=== PATIENT | male | born 1970 | race Caucasian/White ===

== ENCOUNTER 2017-05-03 17:53 | Emergency (ER) | payer OTHER ==
[~2017-05-03] VITALS: Ht 185.4 cm; Wt 86.2 kg
[~2017-05-03 17:53] MED LIST: CELEXA20 MG PO
[2017-05-03] MEDS ORDERED: NORCO 5-325 TA1 EACH PO (19:32)
== END 2017-05-03 19:54 | disposition home or self-care (01) ==
LOC: ED 17:53
DX: S82.891A Other fracture of right lower leg, initial encounter for closed fracture (principal); W18.31XA Fall on same level due to stepping on an object, initial encounter; Z79.899 Other long term (current) drug therapy; Y93.89 Activity, other specified; Y92.89 Other specified places as the place of occurrence of the external cause; Y99.8 Other external cause status

== ENCOUNTER → 2018-01-31 | Outpatient (CLI) | payer OTHER ==
[~2018-01-31] MED LIST changes: +NORCO 5-325 TA1 EACH PO
[2018-01-31 15:10] LABS: HEMATOCRIT 42.7 % (42.0-52.0); HEMOGLOBIN 14.8 g/dl (14.0-18.0); MEAN CELL VOLUME 92.6 fl (80.0-94.0); MEAN CORPUSCULAR HGB 32.1 pg (27.0-31.0); MEAN CORPUSCULAR HGB CONC 34.7 g/dl (33.0-37.0); MEAN PLATELET VOLUME 8.8 fl (9.6-12.3); PLATELET COUNT AUTOMATED 252 10*3/uL (130-400); RED BLOOD COUNT 4.61 10*6/uL (4.50-5.90); RED CELL DISTRI WIDTH 13.2 % (0-14.5); WHITE BLOOD COUNT 5.3 10*3/uL (4.8-10.8)
[2018-01-31 15:33] LABS: BUN 14 mg/dl (7-24); CHLORIDE 106 mmol/L (98-107); CREATININE 1.29 mg/dL (0.70-1.30); POTASSIUM 3.8 mmol/L (3.5-5.1); SODIUM 140 mmol/L (136-145)
[2018-01-31 15:37] LABS: ATYPICAL LYMPHS 6 % (0-0); BASOPHILS 1 % (0-1); PLATELET SUFFICIENCY NORMAL (NORMAL); TOTAL CELLS COUNTED 100 #CELLS
[2018-01-31 15:38] LABS: ACT PARTIAL THROMBO TIME 23.2 SECONDS (20.8-31.5)
== END | disposition home or self-care (01) ==
LOC: LAB 14:46
PROVIDERS: Surgery
DX: K64.9 Unspecified hemorrhoids (principal)

== ENCOUNTER → 2018-02-09 | Day surgery (SDC) | payer OTHER ==
[~2018-02-09] VITALS: Ht 185.4 cm; Wt 81.6 kg
[2018-02-09] VITALS (7 sets, daily range): BP systolic 107–129; BP diastolic 60–76
--- NOTE | ~2018-02-09 | O ---
[place], [place] OPERATIVE NOTE NAME: JOELLE SANDOVAL UNIT #: [id number] ROOM: DOCTOR: ASHISH TORIBIO MD BIRTHDATE: [birth year] DOS: 02/09/2018 PREOPERATIVE DIAGNOSIS: Symptomatic internal hemorrhoids. POSTOPERATIVE DIAGNOSIS: Symptomatic internal hemorrhoids. PROCEDURE: Doppler-guided hemorrhoid arterial ligation, rectopexy times 1 (7 o'clock position). SURGEON: Ashish Toribio MD HOUSEKEEPING DEPARTMENT WORKER: ДМИТРИЙ. ANESTHESIA: General. INDICATIONS: This is a 47-year-old gentleman with symptomatic, grade 2 and grade 3 internal hemorrhoids, was here for the above-mentioned procedure. The procedure and its complications were explained to the patient in detail preoperatively. Complications that were discussed included but were not limited to bleeding, recurrence, prolonged postoperative pain, damage to lying vital structures. He agreed to proceed. DESCRIPTION OF PROCEDURE: After identifying the patient, the patient was brought to the operating suite and laid in the supine position. After induction of general anesthesia, the patient was placed in lithotomy position and the parts were then painted and draped in the usual sterile fashion. A digital rectal exam was performed, which was within normal limits. Prior to this, a time-out procedure was called. The Doppler probe was now introduced into the anal canal and rectum and ligations with the help of 2-0 Vicryl were performed at 1, 3, 5, 7, 9 and 11 o'clock positions respectively. Thereafter, a single rectopexy was performed at 7 o'clock position. Thereafter, a rectal exam was performed and there was no hematoma that could be palpated. Local anesthesia was infiltrated in the perianal fashion and the lidocaine jelly was placed. The patient was placed back in a supine position and then brought back to the recovery room after uneventful extubation. There were no complications. Dr. Ashish Toribio, the attending surgeon, was present throughout the operating case. [place], [place] OPERATIVE NOTE NAME: JOELLE SANDOVAL UNIT #: [id number] ROOM: DOCTOR: ASHISH TORIBIO MD BIRTHDATE: [birth year] Ashish Toribio MD CM:OPRECORD:OPERATIVE NOTE [id number] ASHISH TORIBIO MD 02/09/18 1045 interface
== END | disposition home or self-care (01) ==
LOC: SDC 02-06 14:00
DX: K64.8 Other hemorrhoids (principal); Z79.899 Other long term (current) drug therapy
CPT/HCPCS: 00902; 0249T

== ENCOUNTER → 2019-02-23 | Day surgery (SDC) | payer OTHER ==
[~2019-02-23] VITALS: Ht 185.4 cm; Wt 83.9 kg
[~2019-02-23] MED LIST changes: +AUGMENTIN 875875 MG PO; +PHENERGAN25 M3 PO; +ZOFRAN4 MG PO
--- NOTE | ~2019-02-23 | PROC NOTE ---
[place], [place] PROCEDURE NOTE NAME: JOELLE SANDOVAL UNIT #: [id number] ROOM: DOCTOR: ASHISH TORIBIO MD BIRTHDATE: [birth year] DOS: 02/23/2019 PREOPERATIVE DIAGNOSIS: Recurrent grade 3 internal hemorrhoids. POSTOPERATIVE DIAGNOSIS: Recurrent grade 3 internal hemorrhoids. PROCEDURES: Doppler guided hemorrhoidal artery ligation, rectoanal repair. SURGEON: Ashish Toribio MD RUG INSPECTOR: ДМИТРИЙ. ANESTHESIA: MAC with local. INDICATIONS: This is a 48-year-old gentleman who has recurrent grade 3 internal hemorrhoids, who is here for the above-mentioned procedure. The procedure and its complications were explained to the patient in detail preoperatively. Complications that were discussed included but were not limited to, bleeding, prolonged pain, recurrence and damage to underlying vital structures. He agreed to proceed. DESCRIPTION OF PROCEDURE: After identifying the patient, the patient was brought to the operating room and laid in the supine position. After a time-out procedure was called, IV sedation was administered by the anesthesia team and the patient was placed in a lithotomy position. The parts were then painted and draped in the usual sterile fashion. A digital rectal exam was performed, which was within normal limits except for the presence of grade 3 hemorrhoids. Doppler guided hemorrhoidal artery ligation was performed at 1, 3, 5, 7, 9 and 11 o'clock positions with the help of 2-0 Vicryl. Thereafter, rectoanal repair was performed at 9 o'clock position for the hemorrhoid mass that was prolapsing. After that was done, the probe was withdrawn and digital rectal exam was performed again and there was no hematoma that could be palpated. There was no bleeding. Local anesthesia was infiltrated in a perianal fashion and topical lidocaine was also applied for pain relief. The patient was placed in a supine position and given mesh underwear for comfort and to keep the dressing in place. The patient then was brought back to the recovery room in stable fashion. There were no complications. Dr. Ashish Toribio, the attending surgeon, was present throughout the operating case. [place], [place] PROCEDURE NOTE NAME: JOELLE SANDOVAL UNIT #: [id number] ROOM: DOCTOR: ASHISH TORIBIO MD BIRTHDATE: [birth year] Ashish Toribio MD CM:NATASHA:PROCEDURE NOTE [id number] ASHISH TORIBIO MD
[2019-02-23 07:00] VITALS: BP 117/68
[2019-02-23 08:18] VITALS: BP 126/58
[2019-02-23 08:35] VITALS: BP 97/48
[2019-02-23 08:47] VITALS: BP 96/46
[2019-02-23 09:02] VITALS: BP 103/58
[2019-02-23 09:20] VITALS: BP 102/53
== END | disposition home or self-care (01) ==
LOC: SDC 02-21 08:45
DX: K64.2 Third degree hemorrhoids (principal); Z72.89 Other problems related to lifestyle; Z79.899 Other long term (current) drug therapy; Z98.890 Other specified postprocedural states
CPT/HCPCS: 00902; 0249T

== ENCOUNTER 2019-02-25 07:10 | Emergency (ER) | payer OTHER ==
[~2019-02-25] VITALS: Ht 185.4 cm; Wt 83.9 kg
[~2019-02-25 07:10] MED LIST changes: -AUGMENTIN 875875 MG PO; -PHENERGAN25 M3 PO; -ZOFRAN4 MG PO
[2019-02-25 07:39] LABS: HEMATOCRIT 41.9 % (42.0-52.0); HEMOGLOBIN 14.8 g/dl (14.0-18.0); MEAN CELL VOLUME 94.6 fl (80.0-94.0); MEAN CORPUSCULAR HGB 33.4 pg (27.0-31.0); MEAN CORPUSCULAR HGB CONC 35.3 g/dl (33.0-37.0); MEAN PLATELET VOLUME 8.7 fl (9.6-12.3); PLATELET COUNT AUTOMATED 254 10*3/uL (130-400); RED BLOOD COUNT 4.43 10*6/uL (4.50-5.90); RED CELL DISTRI WIDTH 13.2 % (0-14.5); WHITE BLOOD COUNT 18.1 10*3/uL (4.8-10.8)
[2019-02-25 07:54] LABS: ALBUMIN 3.5 gm/dl (3.1-4.5); ALKALINE PHOSPHATASE 59 U/L (45-117); BUN 14 mg/dl (7-24); CHLORIDE 107 mmol/L (98-107); CREATININE 1.27 mg/dL (0.70-1.30); LIPASE 84 U/L (73-393); POTASSIUM 3.5 mmol/L (3.5-5.1); SGOT/AST 20 IU/L (3-35); SGPT/ALT 67 U/L (12-78); SODIUM 141 mmol/L (136-145)
[2019-02-25 07:59] LABS: TOTAL CELLS COUNTED 100 #CELLS
[2019-02-25 08:00] LABS: PLATELET SUFFICIENCY NORMAL (NORMAL)
[2019-02-26] MEDS ORDERED: ZOFRAN4 MG PO (14:06)
[2019-02-26] MEDS ORDERED: PHENERGAN25 M3 PO (14:06)
== END 2019-02-25 11:15 | disposition home or self-care (01) ==
LOC: ED 07:10
PROVIDERS: Emergency Medicine
DX: R10.11 Right upper quadrant pain (principal); R11.0 Nausea; R68.83 Chills (without fever); Z79.899 Other long term (current) drug therapy; Z98.890 Other specified postprocedural states

== ENCOUNTER 2019-02-26 12:40 | Emergency (ER) | payer OTHER ==
--- NOTE | ~2019-02-26 | EKG ---
[place], [place] ELECTROCARDIOGRAM REPORT NAME: JOELLE SANDOVAL UNIT #: [id number] ROOM: DOCTOR: KARISSA DRAFT REPORT BIRTHDATE: [birth year] [facility] Test Date: 2019-02-26 Test Time: 12:57:18 Pat Name: JOELLE SANDOVAL Department: Room: Gender: Exercise Specialist: Lesvia Rouse : 1970 Requested By: FRAN NUNEZ Order Number: [id number] Reading MD: Costa Brown Measurements Intervals [place] Rate: 64 P: 44 DC: 149 QRS: 39 QRSD: 97 T: 8 QT: 383 QTc: 395 Interpretive Statements Sinus rhythm No previous ECG available for comparison Electronically Signed On 02-28-2019 13:25:09 PDT by Costa Brown CM:EKGRPT:ELECTROCARDIOGRAM REPORT [id number] FRAN BHAKTA DRAFT REPORT FRAN NUNEZ DO
[2019-02-26 13:06] LABS: HEMATOCRIT 40.6 % (42.0-52.0); HEMOGLOBIN 14.2 g/dl (14.0-18.0); MEAN CELL VOLUME 94.9 fl (80.0-94.0); MEAN CORPUSCULAR HGB 33.2 pg (27.0-31.0); MEAN PLATELET VOLUME 8.6 fl (9.6-12.3); PLATELET COUNT AUTOMATED 213 10*3/uL (130-400); RED BLOOD COUNT 4.28 10*6/uL (4.50-5.90); WHITE BLOOD COUNT 21.2 10*3/uL (4.8-10.8)
[2019-02-26 13:17] LABS: ACT PARTIAL THROMBO TIME 27.9 SECONDS (20.0-32.1); INTERNATIONAL NORM RATIO 1.1 (2.0-3.5)
[2019-02-26 13:22] LABS: ALBUMIN 3.2 gm/dl (3.1-4.5); ALKALINE PHOSPHATASE 61 U/L (45-117); BUN 15 mg/dl (7-24); CHLORIDE 106 mmol/L (98-107); CREATININE 1.44 mg/dL (0.70-1.30); LIPASE 83 U/L (73-393); POTASSIUM 3.7 mmol/L (3.5-5.1); SGOT/AST 16 IU/L (3-35); SGPT/ALT 52 U/L (12-78); SODIUM 139 mmol/L (136-145)
[2019-02-26 13:23] LABS: TROPONIN I < 0.015 ng/ml (<0.045)
[2019-02-26 13:25] LABS: BASOPHILS 1 % (0-1); PLATELET SUFFICIENCY NORMAL (NORMAL); TOTAL CELLS COUNTED 100 #CELLS
[2019-02-26] MEDS ORDERED: ZOFRAN4 MG PO (14:06)
[2019-02-26] MEDS ORDERED: PHENERGAN25 M3 PO (14:06)
== END 2019-02-26 14:15 | disposition home or self-care (01) ==
LOC: ED 12:40
PROVIDERS: Emergency Medicine
DX: D72.829 Elevated white blood cell count, unspecified (principal); R11.2 Nausea with vomiting, unspecified; Z79.899 Other long term (current) drug therapy

== ENCOUNTER 2019-02-28 12:27 | Inpatient (IN) | payer OTHER ==
[~2019-02-28] VITALS: Ht 182.9 cm; Wt 81.6 kg
--- NOTE | ~2019-02-28 | CON ---
[place], [place] REPORT OF CONSULTATION NAME: JOELLE SANDOVAL UNIT #: [id number] ROOM: 519 DOCTOR: LEIDA RANJANSILVIA BIRTHDATE: [birth year] DOS: 03/01/2019 PULMONARY CONSULTATION NOTE REASON FOR CONSULTATION: Potential respiratory infection, fever of unknown origin. REQUESTED BY: Hospitalist service. HISTORY OF PRESENT ILLNESS: This is a 48-year-old man who underwent hemorrhoidal surgery on 02/23/2019. Started having fevers and chills postop day #2. The patient had fevers, chills and rigors with sweats soaking through his sheets. The patient went to the ED. He had a white count of 19, but CT abdomen and pelvis was done, was originally negative. The patient was sent home. The patient then came back to the ED a day later. Once again had an elevated white count of 21, but all other labs were within normal limits. The patient was sent home. Once again, the patient came back due to increased symptoms at night on further evaluation. PAST MEDICAL HISTORY: 1. External hemorrhoids. 2. Avulsion fracture of ankle. PAST SURGICAL HISTORY: 1. Hemorrhoidectomy x 2. 2. Inguinal hernia surgery. 3. Vasectomy. SOCIAL HISTORY: The patient with social alcohol use. No tobacco use and does not use illicit drugs. FAMILY HISTORY: The patient's mother is alive with atrial fibrillation. The patient's father is healthy, but no other medical problems are known. ALLERGIES: The patient does not have any allergies. HOME MEDICATIONS: Celexa. REVIEW OF SYSTEMS: GENERAL: The patient reports fevers, chills. Denies weight loss or weight gain. HEENT: The patient denies vision changes, hearing loss, nasal discharge or pain, ear discharge or pain. The patient denies throat pain, swelling or dysphagia. CARDIOVASCULAR: The patient denies chest pain, palpitations or lower extremity edema. RESPIRATORY: The patient denies shortness of breath, cough, hemoptysis, wheezing, dyspnea on exertion, paroxysmal nocturnal dyspnea, stridor or sputum production. ABDOMINAL: The patient reports loss of appetite, but denies abdominal pain, [place], [place] REPORT OF CONSULTATION NAME: JOELLE SANDOVAL UNIT #: [id number] ROOM: [facility] DOCTOR: LEIDA HINA TRAVIS BIRTHDATE: [birth year] nausea, vomiting, diarrhea, constipation, melena, hematochezia or hematemesis. GENITOURINARY: The patient denies dysuria, hematuria, increased frequency or urgency. NEUROLOGIC: The patient denies lightheadedness or confusion. PSYCHIATRIC: The patient denies depression, anxiety or substance abuse. ENDOCRINE: The patient denies polydipsia, heat or cold intolerance. SKIN: The patient denies any rashes, lesions or ulcers. PHYSICAL EXAMINATION: VITAL SIGNS: The patient has a temperature of 98.1. However, the patient did have a temperature of 100.5 overnight that was associated with sweats but not chills. The patient has a pulse of 58, respiratory rate of 18, blood pressure 135/74, patient is 98% on room air. HEENT: Normocephalic, atraumatic. Eyes nonicteric. NECK: Supple, nontender, without lesions. Trachea midline. HEART: Regular rate and rhythm. S1, S2 audible. LUNGS: Clear to auscultation bilaterally. ABDOMEN: Soft, positive bowel sounds, nontender. EXTREMITIES: No clubbing, cyanosis or edema. NEUROLOGIC: Grossly intact. Cranial nerves 2-12 are grossly intact. PSYCHIATRIC: Normal mood. SKIN: Warm and dry. No rashes. LABORATORY DATA: On admission from today are remarkable for a white count of 4.5. On 02/26/2019, his white count was 21.2. Hemoglobin 12.6, hematocrit 36.4, platelet count of 22.4. Sodium today is 143, 4 for his potassium, chloride 111, carbon dioxide 25, BUN 10, creatinine 1.3. GFR 58, glucose normal. Calcium 7.9, phosphorus 3.1, mag 2.2, T-bili 0.3, AST 26, ALT 49, alkaline phosphatase 55, total protein 5.9, albumin 2.7. Lipid panel within normal limits. The patient has had multiple blood cultures since the , all are negative to date. The patient also had repeat blood cultures on admission which are not back yet but presumed negative currently. ASSESSMENT: 1. Likely gram-negative bacteremia secondary to rectal surgery. 2. Fever of unknown origin. 3. Leukocytosis. PLAN: At this time, we will treat the patient if he has gram-negative bacteremia. Even if this is just a transient thing that happened after surgery. Gram-negative bacteria are lysed. They can release many things that ____ fever. Therefore, currently we will treat this with Zosyn 4.5 grams over extended infusion. We suspect this is the source of the fever and not anything respiratory related. However, we will continue to follow the patient. Any other changes will be based on the progression of illness. Thank you very much for allowing me to participate in this patient's care. [place], [place] REPORT OF CONSULTATION NAME: JOELLE SANDOVAL UNIT #: [id number] ROOM: [facility] DOCTOR: HINA VERMA DO BIRTHDATE: [birth year] Pierre Verma DO ZACHARY CARVAJAL MD CM:CONSTR:REPORT OF CONSULTATION 0906 03/02/19 1316 interface
--- NOTE | ~2019-02-28 | PR ---
[place], [place] PROGRESS NOTE NAME: JOELLE SANDOVAL UNIT #: [id number] ROOM: 519 DOCTOR: WEI GILL MD,ZACHARY BIRTHDATE: [birth year] DOS: 03/02/2019 PULMONARY PROGRESS NOTE SUBJECTIVE: The patient is independently seen and examined in [id number] encounter, history was confirmed. Labs reviewed. The assessment of the patient today was personally completed. Note done by the medical videographer was approved as well. He was planned to have endoscopy to be done by Dr. Toribio. The patient was still noted with some episode of diaphoresis at nighttime, but not noted with any high grade fever. Fever of the patient was noted essentially as maximum 99.5 degrees Fahrenheit at 2:52 a.m. He has not been reporting any interval development or any symptoms of coughing, chest pains, abdominal pain, hematemesis, or melena. PHYSICAL EXAMINATION: GENERAL: The patient is noted comfortably resting lying on the bed this morning of assessment. No distress. VITAL SIGNS: T-max 99.5 degree Fahrenheit, respiratory rate 20, heart rate 59-63, blood pressure 162-119/70. Pulse oxygen saturation recorded with the patient resting on room air 95% saturation. HEENT: Examination shows head was atraumatic. Eyes nonicterus. NECK: Supple. CARDIOVASCULAR: S1, S2 audible. LUNGS: The patient was noted without any wheezing or crackles. ABDOMEN: Remains soft, nontender. Bowel sounds present. EXTREMITIES: No acute change. LABORATORY DATA: Blood culture from 02/28/2019, no bacterial growths. CBC this morning, WBC count was noted currently normal. Platelet count was normal. Hemoglobin 12.3. BMP, normal BUN and creatinine. The influenza A, B, nasal washing antigen negative. Respiratory virus panel order was noted at this time pending. IMPRESSION: 1. Stable respiratory status with presumed bacteremia with acute sepsis. 2. The patient with resolved acute kidney injury as well. 3. Status post hemorrhoidectomy. PLAN OF TREATMENT: No change in pulmonary standpoint at this time. Proceed with the endoscopy as planned by the surgery staff. No change in antibiotic will be necessary. Monitor clinical course at this time. [place], [place] PROGRESS NOTE NAME: JOELLE SANDOVAL UNIT #: [id number] ROOM: 519 DOCTOR: ZACHARY MCPHERSON MD BIRTHDATE: [birth year] ZACHARY CARVAJAL MD CM:PNTRANS [id number] ZACHARY GILL MD 03/03/19 0344 interface
--- NOTE | ~2019-02-28 | CON ---
[place], [place] REPORT OF CONSULTATION NAME: JOELLE SANDOVAL UNIT #: [id number] ROOM: 519 DOCTOR: ZACHARY MCPHERSON MD BIRTHDATE: [birth year] DOS: 03/01/2019 PULMONARY CONSULTATION, EVALUATION, AND MANAGEMENT CONSULTATION REQUESTED BY: Hospitalist service. REASON FOR CONSULTATION: To assess the patient for possibility of sepsis. The patient was independently seen and examined with [id number] encounter. History was confirmed. Physical examination performed. Labs for the patient reviewed. Note done by the medical oncologist was approved as well. The assessment and management of the patient and the recommendation was personally completed. HISTORY OF PRESENT ILLNESS: This is a 48-year-old white male patient who has been admitted to the hospital on the day of 02/28/2019. The patient's actual symptoms started on date of 02/25/2019. The patient has a recent internal hemorrhoid surgery, which was done for the patient with ultrasound-guided by Dr. Toribio. The patient did well, but later on after surgery the patient at home developed a drenching sweat associated with rigors. The patient was also reported some symptoms for abdominal pain for the patient as well. He was seen in the Emergency Room on 02/25/2019. The patient was assessed that includes ultrasound screening of the gallbladder, CT scan of the abdomen and pelvis of the patient and then was sent home for symptomatic management. The patient presented back to the Emergency Room again on date of 02/26/2019. He has been reported with similar symptoms has initially noted episode for the patient with excessive sweating with rigor, weakness and fatigue. The patient came back to the Emergency Room again where he has been assessed and sent home as no causation of the current symptoms was described. Blood culture were taken in both occasions. The blood culture has been reported as negative. The patient has been admitted to the hospital finally on 02/28/2019 for further assessment and similar symptoms. The patient stating having an elevation of temperature like symptoms for this patient at home. Also noted with oral temperature of the patient that was noted as 100.5 degrees Fahrenheit, previously noted 99.7 degrees Fahrenheit for the patient on admission. The temperature on 02/25/2019 noted 99.2 degrees Fahrenheit. Denies any symptoms of chest pain. Denies symptoms of coughing. Sputum expectoration and wheezing reported. PAST MEDICAL HISTORY: Known as: 1. Hemorrhoids. 2. History of avulsion fracture of the ankle. No other chronic past medical history of the patient was previously known. PAST SURGICAL HISTORY: Noted as: 1. Hemorrhoidectomy. 2. Inguinal hernia repair. 3. Vasectomy. SOCIAL HISTORY: The patient is , lives at home. He has no children. Denies history of alcohol use or illicit drug use or any tobacco use last time. [place], [place] REPORT OF CONSULTATION NAME: JOELLE SANDOVAL UNIT #: [id number] ROOM: [facility] DOCTOR: ZACHARY MCPHERSON MD BIRTHDATE: [birth year] FAMILY HISTORY: The patient reported in the father who is living without any medical illness. Mother of the patient known with history of atrial fibrillation. HOME MEDICATIONS: Noted essentially p.r.n. medications as Zofran and Phenergan. CURRENT MEDICATIONS: Which were administered for this patient this morning for the patient were reviewed as the use of citalopram, Lovenox for DVT prophylaxis and IV Zosyn. Zosyn was given every 6 hours at 3.75 grams. DRUG ALLERGIES: Noted as no known drug allergies. REVIEW OF SYSTEMS: CONSTITUTIONAL: The patient was noted symptoms of fatigue and tiredness noted with chills at home previously in the last few days intermittently. Not sure about the temperature. EYES: Denies any burning, redness or discharge. EARS, NOSE, THROAT SYMPTOMS: Denies sore throat, hoarseness, otalgia, postnasal drainage or epistaxis. CARDIOVASCULAR SYSTEM: Denies angina pain, edema, or pain of lower extremities. GASTROINTESTINAL SYMPTOMS: Denies dysphagia, nausea, vomiting, diarrhea, abdominal pain, hematemesis, melena or hematochezia. Denies any constipation at this time, but noted constipation before surgery, which seem to be resolved as per the patient. GENITOURINARY SYMPTOMS: Denies dysuria, suprapubic pain or hematuria. MUSCULOSKELETAL SYMPTOMS: No acute joint pain, redness or tenderness. SKIN: No lesions or rashes reported. Remaining systems were reviewed. They were noted all negative. PHYSICAL EXAMINATION: GENERAL: This is a 48-year-old white male who currently noted awake and alert this morning of assessment. Height of 6 feet, weight of 180 pounds, BMI 23.7. VITAL SIGNS: Temperature, T-max is 100.5 degrees Fahrenheit, respiratory rate about 18-20, heart rate noted 55-65, blood pressure 127/70 and 124/68. The pulse oxygen saturation recorded at rest on room air as 98% to 95% saturation. HEENT: Examination shows head was atraumatic. Eyes nonicterus. NECK: Supple. CARDIOVASCULAR: S1, S2 audible. LUNGS: Noted clear to auscultation bilaterally. ABDOMEN: Soft, nontender. Bowel sounds present. EXTREMITIES: Without edema, clubbing or cyanosis. MUSCULOSKELETAL: Without any acute deformities. CENTRAL NERVOUS SYSTEM: Cranial nerves 2-12 intact. LABORATORY DATA: Blood culture, which was done on 02/25/2019 and 02/26/2019, all assessed for the patient noted no bacterial growths. Lactic acid for this patient was noted normal in all 3 occasions in the Emergency Room assessment. CMP that was done on 02/25/2019, normal BUN and creatinine, glucose minimal at 135. C-reactive protein mildly elevated at 1.52. CBC on 02/25/2019, the [place], [place] REPORT OF CONSULTATION NAME: JOELLE SANDOVAL UNIT #: [id number] ROOM: [facility] DOCTOR: WEI GILL MD,[facility] BIRTHDATE: [birth year] patient's WBC count 18.1, hemoglobin 14.8, hematocrit 41.9 and platelet count 254,000 and 85% segmented neutrophils at that time. CBC that was done on 02/26/2019, WBC count was 21.2, hemoglobin 14.2, hematocrit was normal. An 81% segmented neutrophils of the patient was noted. Gallbladder screening for the patient that was done on 02/25/2019 was noted without any acute radiologic abnormality. CT scan of the abdomen and pelvis, which are reported by the Radiology services, reports were reviewed for the patient as no acute abnormality of abdomen and pelvis. CBC that was done yesterday for the patient, WBC count 4.3, hemoglobin 12.9, hematocrit 37.0 and platelet count 214,000. CBC that was done this morning, WBC count was 4.5, hemoglobin 12.6, hematocrit 36.5 and platelet count was normal. CMP that was done, BUN normal and creatinine was 1.31 for the patient on today's labs. CMP that was done yesterday during admission for the patient was noted essentially normal. DIAGNOSTIC DATA: Chest x-ray, which was done for the patient on 02/26/2019 was reviewed was noted without any acute abnormalities with the review. The patient has ESR noted initially 5 and later on elevated as 17. KUB x-ray of the patient that was done on 02/25/2019 was essentially noted as normal study. IMPRESSION: 1. The patient who has been currently admitted to the hospital were noted with signs and symptoms consistent with acute sepsis for this patient, possibility of bacteremia will be considered with a leukocytosis with admission currently noted leukopenia very likely. The bacterial cause remains in consideration for gram-negative rods based on recent instrumentation in surgery, which was done for the patient for the hemorrhoid would be considered most likely source. Rule out any viral syndrome as well. 2. The patient with no long-term medical problem except use of Celexa for the anxiety disorder. 3. Acute kidney injury for the patient noted as a result of current acute sepsis is very likely as early acute injury. PLAN OF MANAGEMENT: The patient was getting IV Zosyn, it will be changed to extended release 4.5 g every 8-hour use. Continue DVT prophylaxis, continue citalopram for the patient, close monitoring for any additional signs of sepsis as well and the temperature curve and other assessment including for leukopenia. Monitor for this patient's new culture, which was taken on 02/28/2019. Virus panel will be ordered for the patient as well as need of the nasopharyngeal swab. Other therapy, plan of management with additional treatment changes will be ordered based on the progression of the illness. The patient's symptoms and findings not noted originating from the lungs and CT scan of the chest may not be needed at the present time, but his prior workup may be considered and to be done only if necessary. Urine culture for the patient would be ordered if not done. Thanks for allowing me to participate in the care of this patient. [place], [place] REPORT OF CONSULTATION NAME: JOELLE SANDOVAL UNIT #: [id number] ROOM: [facility] DOCTOR: WEI GILL [facility] BIRTHDATE: [birth year] ZACHARY CARVAJAL MD CM:CONSTR:REPORT OF CONSULTATION 1834 03/13/19 0822 interface
[~2019-02-28 12:27] MED LIST changes: +PHENERGAN25 M3 PO; +ZOFRAN4 MG PO
[2019-02-28 12:37] VITALS: BP 114/69
[2019-02-28 13:22] LABS: HEMOGLOBIN 12.9 g/dl (14.0-18.0); MEAN CELL VOLUME 94.9 fl (80.0-94.0); MEAN CORPUSCULAR HGB 33.1 pg (27.0-31.0); MEAN CORPUSCULAR HGB CONC 34.9 g/dl (33.0-37.0); MEAN PLATELET VOLUME 8.8 fl (9.6-12.3); PLATELET COUNT AUTOMATED 214 10*3/uL (130-400); RED CELL DISTRI WIDTH 13.1 % (0-14.5); WHITE BLOOD COUNT 4.3 10*3/uL (4.8-10.8)
[2019-02-28 13:37] LABS: ALBUMIN 2.9 gm/dl (3.1-4.5); ALKALINE PHOSPHATASE 56 U/L (45-117); BUN 11 mg/dl (7-24); CHLORIDE 110 mmol/L (98-107); CREATININE 1.14 mg/dL (0.70-1.30); POTASSIUM 3.8 mmol/L (3.5-5.1); SGOT/AST 23 IU/L (3-35); SGPT/ALT 46 U/L (12-78); SODIUM 142 mmol/L (136-145); TOTAL PROTEIN 6.3 gm/dL (6.4-8.2)
[2019-02-28 13:59] LABS: PLATELET SUFFICIENCY NORMAL (NORMAL); TOTAL CELLS COUNTED 100 #CELLS
[2019-02-28 14:38] LABS: VITAMIN D, 25-HYDROXY 23.4 ng/mL (30-100)
[2019-02-28 16:00] VITALS: BP 122/74
[2019-02-28 17:30] LABS: BILIRUBIN NEGATIVE (NEGATIVE); BLOOD NEGATIVE (NEGATIVE); CLARITY CLEAR (CLEAR); COLOR YELLOW (YELLOW); GLUCOSE NEGATIVE (NEGATIVE); KETONE NEGATIVE (NEGATIVE); LEUKO ESTERASE NEGATIVE (NEGATIVE); NITRITE NEGATIVE (NEGATIVE); UROBILINOGEN 0.2 E.U./dl (0.2-1.0)
[2019-02-28 17:41] LABS: BACTERIA TRACE; EPITHELIAL CELLS 0-2
--- NOTE | 2019-02-28 19:21 | NUR ---
RESTING IN BED AT THIS TIME WATCHING TV. IV FLUIDS NOTED INFUSING INTO RIGHT ARM. DENIES ANY NEEDS OR COMPLAINTS. BED IS IN LOWEST POSITION WITH WHEELS LOCKED. CALL LIGHT IS WITHIN REACH. ENCOURAGED TO USE CALL LIGHT FOR NEEDS. WILL CONTINUE TO MONITOR.
[2019-02-28 20:00] VITALS: BP 129/74
[2019-03-01] VITALS: BP 127/75
--- NOTE | 2019-03-01 00:04 | NUR ---
PRN TYLENOL GIVEN FOR SLIGHTLY ELEVATED TEMP OF 100.5 WILL EVALUATE EFFECTIVENESS. CALL LIGHT IS WITHIN REACH.
--- NOTE | 2019-03-01 01:13 | NUR ---
PRN TYLENOL EFFECTIVE FOR REDUCING FEVER.NEW ORAL TEMP OF 99.4 WILL CONTINUE TO MONITOR.PATIENT ENCOURAGED TO USE CALL LIGHT FOR NEEDS.
[2019-03-01 03:21] VITALS: BP 127/74
--- NOTE | 2019-03-01 03:21 | NUR ---
PATIENT CALLED OUT STATING THAT DR SANDOVAL WOULD LIKE A SET OF VITALS AT THIS TIME DUE TO PATIENT COMPLAINTS OF SWEATS. VITALS OBTAINED AND WNL.SEE VITAL DOCUMENTATION.
[2019-03-01 06:39] LABS: HEMATOCRIT 36.4 % (42.0-52.0); HEMOGLOBIN 12.6 g/dl (14.0-18.0); MEAN CELL VOLUME 94.5 fl (80.0-94.0); MEAN CORPUSCULAR HGB 32.7 pg (27.0-31.0); MEAN CORPUSCULAR HGB CONC 34.6 g/dl (33.0-37.0); MEAN PLATELET VOLUME 8.6 fl (9.6-12.3); PLATELET COUNT AUTOMATED 224 10*3/uL (130-400); RED BLOOD COUNT 3.85 10*6/uL (4.50-5.90); WHITE BLOOD COUNT 4.5 10*3/uL (4.8-10.8)
--- NOTE | 2019-03-01 06:47 | NUR ---
DR HAYWOOD'S ANSWERING SERVICE NOTIFIED OF CONSULT. THEY WILL NOTIFY THE PHYSICIAN.
[2019-03-01 07:07] LABS: ALBUMIN 2.7 gm/dl (3.1-4.5); ALKALINE PHOSPHATASE 55 U/L (45-117); BUN 10 mg/dl (7-24); CHLORIDE 111 mmol/L (98-107); CHOLESTEROL 117 mg/dL (<200); CREATININE 1.31 mg/dL (0.70-1.30); HDL CHOLESTEROL 29 mg/dl (40-60); LDL CHOLESTEROL 67 mg/dL (9-159); PHOSPHOROUS 3.1 mg/dL (2.5-4.9); SGOT/AST 26 IU/L (3-35); SGPT/ALT 49 U/L (12-78); SODIUM 143 mmol/L (136-145); TOTAL PROTEIN 5.9 gm/dL (6.4-8.2); TRIGLYCERIDES 105 mg/dl (<150); VLDL CHOLESTEROL 21 mg/dL (6-40)
[2019-03-01 07:27] LABS: ATYPICAL LYMPHS 1 % (0-0); BASOPHILS 1 % (0-1); TOTAL CELLS COUNTED 100 #CELLS
[2019-03-01 07:28] LABS: BURR CELLS FEW; PLATELET SUFFICIENCY NORMAL (NORMAL); ROULEAUX SLIGHT
[2019-03-01 08:00] VITALS: BP 135/74
--- NOTE | 2019-03-01 11:43 | NUR ---
Orchid Worker in to talk to patient. Patient states lives at HOME with FAMILY. There are SEVERAL steps in the home. Physician: Tod SANDOVAL Pharmacy: [facility] health services: NONE Patient's level of ADLs: INDEPENDENT Patient has working utilities: YES DME: NONE Follow-up physician's appointment after d/c: WILL BE MADE BY HOSPITALIST NURSE DIRECTOR ON DISCHARGE Does patient want to access PORTAL?: NO Discharge plan PT LIVES AT HOME WITH HIS AND KIDS AND IS INDEPENDENT IN HIS CARE. DENIES ANY NEEDS ON DISCHARGE. WILL CONTINUE TO FOLLOW. PT STATES HE WILL HAVE A RIDE HOME. . ANN STEVENSON
[2019-03-01 12:00] VITALS: BP 124/68
[2019-03-01 16:00] VITALS: BP 149/78
--- NOTE | 2019-03-01 18:32 | NUR ---
CALLED DR. GREER AWARE OF CONSULT. ORDERS TAKEN AND REVIEWED.
[2019-03-01 20:00] VITALS: BP 122/70
--- NOTE | 2019-03-01 21:38 | NUR ---
SPOKE WITH DR CASAREZ REGARDING PATIENT'S NEED FOR FLU SWAB SINCE PATIENT HAD A RAPID FLU TEST THE PREVIOUS DAY. PER DR CASAREZ DO REPEAT RAPID FLU SWAB THEY CAN SOMETIMES COME BACK A FALSE NEGATIVE.
[2019-03-02] VITALS (10 sets, daily range): BP systolic 101–138; BP diastolic 55–86
--- NOTE | 2019-03-02 02:52 | NUR ---
PATIENT USED CALL LIGHT FOR COMPLAINTS OF "SWEATS". VITAL SIGN'S WERE OBTAINED AT THIS TIME. SLIGHTLY ELEVATED TEMP OF 99.5 ALL OTHER VITAL WERE WNL. SEE DOCUMENTATION.
[2019-03-02 06:31] LABS: BASO % 0.6 % (0.0-1.0); EOS # 0.5 10*3/uL (0.0-0.4); EOS % 6.9 % (1.0-4.0); HEMATOCRIT 36.3 % (42.0-52.0); HEMOGLOBIN 12.8 g/dl (14.0-18.0); LYMPH # 1.9 10*3/uL (1.3-4.4); LYMPH % 28.1 % (27.0-41.0); MEAN CELL VOLUME 93.6 fl (80.0-94.0); MEAN CORPUSCULAR HGB CONC 35.3 g/dl (33.0-37.0); MEAN PLATELET VOLUME 8.8 fl (9.6-12.3); MONO # 1.1 10*3/uL (0.1-1.0); MONO % 16.2 % (3.0-9.0); NEUT # 3.2 10*3/uL (2.3-7.9); NEUT % 47.3 % (47.0-73.0); PLATELET COUNT AUTOMATED 249 10*3/uL (130-400); RED BLOOD COUNT 3.88 10*6/uL (4.50-5.90); RED CELL DISTRI WIDTH 13.2 % (0-14.5); WHITE BLOOD COUNT 6.8 10*3/uL (4.8-10.8)
[2019-03-02 06:53] LABS: BUN 11 mg/dl (7-24); CHLORIDE 109 mmol/L (98-107); CREATININE 1.29 mg/dL (0.70-1.30); POTASSIUM 3.9 mmol/L (3.5-5.1); SODIUM 142 mmol/L (136-145)
--- NOTE | 2019-03-02 08:15 | NUR ---
Just left room for a procedure in surgery. Will do echo after 12:00pm.
--- NOTE | 2019-03-02 11:38 | NUR ---
PT HAS NO NEEDS ON DISCHARGE. CAN BE DISCHARGED TO HOME WHEN MEDICALLY STABLE. WILL CONTINUE TO FOLLOW.
--- NOTE | 2019-03-02 19:15 | NUR ---
VISITING WITH FAMILY. NO DISTRESS NOTED. NO VOICED COMPLAINTS
--- NOTE | 2019-03-02 20:23 | NUR ---
24 HR chart check completed.
--- NOTE | 2019-03-02 21:00 | NUR ---
RETSING IN BED WITH NO ACUTE DISTRESS NOTED. AFEBRILE. RESPIRATIONS EASY. LUNGS CLEAR. PULSE OX 97% RA. CALL LIGHT WITHIN REACH. NO VOICED COMPLAINTS
[2019-03-03] VITALS: BP 119/57
--- NOTE | 2019-03-03 | NUR ---
REMAINS AWAKE, RESTING IN BED WITH NO DISTRESS NOTED. RESPIRATIONS EASY. VSS. CALL LIGHT WITHIN REACH. NO VOICED COMPLAINTS
--- NOTE | 2019-03-03 03:30 | NUR ---
TEMP 98.1. DENIES CHILLS/SWEATS.
--- NOTE | 2019-03-03 06:00 | NUR ---
RESTED THROUGHOUT NIGHT WITH NO DISTRESS NOTED. RESPIRATIONS EASY. AFEBRILE. CALL LIGHT WITHIN REACH. NO VOICED COMPLAINTS THIS SHIFT
[2019-03-03 06:57] LABS: BASO % 0.4 % (0.0-1.0); EOS # 0.5 10*3/uL (0.0-0.4); EOS % 6.7 % (1.0-4.0); HEMATOCRIT 38.4 % (42.0-52.0); HEMOGLOBIN 13.1 g/dl (14.0-18.0); LYMPH # 2.1 10*3/uL (1.3-4.4); LYMPH % 29.1 % (27.0-41.0); MEAN CELL VOLUME 93.7 fl (80.0-94.0); MEAN CORPUSCULAR HGB CONC 34.1 g/dl (33.0-37.0); MEAN PLATELET VOLUME 8.6 fl (9.6-12.3); MONO # 0.9 10*3/uL (0.1-1.0); MONO % 11.7 % (3.0-9.0); NEUT # 3.7 10*3/uL (2.3-7.9); NEUT % 50.7 % (47.0-73.0); PLATELET COUNT AUTOMATED 275 10*3/uL (130-400); RED CELL DISTRI WIDTH 13.1 % (0-14.5); WHITE BLOOD COUNT 7.3 10*3/uL (4.8-10.8)
[2019-03-03 08:00] VITALS: BP 120/67
[2019-03-03] MEDS ORDERED: AUGMENTIN 875875 MG PO (08:20)
--- NOTE | 2019-03-03 09:10 | NUR ---
Discharge instructions reviewed with patient/family. Patient receptive and verbalizes understanding. Follow-up care arranged. Written instructions given to patient/family. BURKE QUINTANILLA
[2019-03-06 16:09] LABS: ADENOVIRUS Negative (Negative); INFLUENZA A Negative (Negative); INFLUENZA B Negative (Negative); METAPNEUMOVIRUS Negative (Negative); PARAINFLUENZA 1 Negative (Negative); PARAINFLUENZA 2 Negative (Negative); PARAINFLUENZA 3 Negative (Negative); RHINOVIRUS Positive (Negative); RSV A Negative (Negative); RSV B Negative (Negative)
== END 2019-03-03 09:10 | disposition home or self-care (01) | DRG 683 ==
LOC: 5E 12:27
PROVIDERS: Internal Medicine; Internal Medicine Critical Care Medicine; ADMIT Emergency Medicine
PROC: 0DJD8ZZ Inspection of Lower Intestinal Tract, Via Natural or Artificial Opening Endoscopic (ICD-10-PCS; principal; 2019-03-02)
DX: N17.0 Acute kidney failure with tubular necrosis (principal); E44.1 Mild protein-calorie malnutrition; E86.0 Dehydration; R61 Generalized hyperhidrosis; D72.829 Elevated white blood cell count, unspecified; R70.0 Elevated erythrocyte sedimentation rate; R79.82 Elevated C-reactive protein (CRP); Z68.23 Body mass index [BMI] 23.0-23.9, adult; Z87.81 Personal history of (healed) traumatic fracture; Z82.49 Family history of ischemic heart disease and other diseases of the circulatory system; Z88.9 Allergy status to unspecified drugs, medicaments and biological substances

== ENCOUNTER → 2021-02-17 | Outpatient (CLI) | payer OTHER ==
[~2021-02-17] MED LIST changes: +AUGMENTIN 875875 MG PO
[2021-02-17 09:33] LABS: BASO % 0.8 % (0.0-1.0); EOS # 0.3 10*3/uL (0.0-0.4); EOS % 6.4 % (1.0-4.0); HEMATOCRIT 44.2 % (42.0-52.0); LYMPH # 1.6 10*3/uL (1.3-4.4); LYMPH % 33.4 % (27.0-41.0); MEAN CELL VOLUME 92.7 fl (80.0-94.0); MEAN CORPUSCULAR HGB 31.2 pg (27.0-31.0); MEAN CORPUSCULAR HGB CONC 33.7 g/dl (33.0-37.0); MEAN PLATELET VOLUME 8.6 fl (9.6-12.3); MONO # 0.6 10*3/uL (0.1-1.0); MONO % 11.3 % (3.0-9.0); NEUT # 2.3 10*3/uL (2.3-7.9); NEUT % 47.9 % (47.0-73.0); PLATELET COUNT AUTOMATED 267 10*3/uL (130-400); RED BLOOD COUNT 4.77 10*6/uL (4.50-5.90); RED CELL DISTRI WIDTH 13.1 % (0-14.5); WHITE BLOOD COUNT 4.9 10*3/uL (4.8-10.8)
[2021-02-17 10:06] LABS: ALBUMIN 3.6 gm/dl (3.1-4.5); BUN 21 mg/dl (7-24); CHLORIDE 109 mmol/L (98-107); CHOLESTEROL 204 mg/dL (<200); CREATININE 1.39 mg/dL (0.70-1.30); POTASSIUM 3.7 mmol/L (3.5-5.1); SGOT/AST 20 IU/L (3-35); SGPT/ALT 26 U/L (12-78); SODIUM 141 mmol/L (136-145); TRIGLYCERIDES 395 mg/dl (<150)
[2021-02-17 10:12] LABS: TESTOSTERONE, TOTAL 324 ng/dL (241-827); VITAMIN D, 25-HYDROXY 48.9 ng/mL (30-100)
[2021-02-17 10:15] LABS: ALKALINE PHOSPHATASE 62 U/L (45-117); LDL CHOLESTEROL 88 mg/dL (9-159)
== END | disposition home or self-care (01) ==
LOC: LAB 09:03
PROVIDERS: ATTEND Internal Medicine
DX: R53.83 Other fatigue (principal)

== ENCOUNTER → 2021-02-26 | Day surgery (SDC) | payer OTHER ==
[~2021-02-26] VITALS: Ht 185.4 cm; Wt 83.9 kg
[~2021-02-26] MED LIST changes: +COLACE100 MG PO; +ONDANSETRON HYDR4 M1 PO; +Percocet 325 MG1 TAB PO
[2021-02-26 10:00] VITALS: BP 126/71
[2021-02-26 11:11] VITALS: BP 108/59
[2021-02-26 11:25] VITALS: BP 107/65
[2021-02-26 11:40] VITALS: BP 108/60
[2021-02-26 11:55] VITALS: BP 115/69
[2021-02-26 12:10] VITALS: BP 117/73
== END | disposition home or self-care (01) ==
LOC: SDC 02-23 09:30
PROVIDERS: ATTEND Surgery
DX: K64.4 Residual hemorrhoidal skin tags (principal); L72.0 Epidermal cyst; K64.8 Other hemorrhoids; Z79.899 Other long term (current) drug therapy; Z20.822 Contact with and (suspected) exposure to COVID-19

== ENCOUNTER → 2021-07-14 | Outpatient (CLI) | payer OTHER | END | disposition home or self-care (01) | LOC: RAD 10:07 | PROVIDERS: ATTEND Internal Medicine | DX: M77.31 Calcaneal spur, right foot (principal); M25.572 Pain in left ankle and joints of left foot ==

== ENCOUNTER → 2022-01-04 | Day surgery (SDC) | payer OTHER ==
[~2022-01-04] VITALS: Ht 185.4 cm; Wt 88.5 kg
[2022-01-04 08:00] VITALS: BP 133/76
[2022-01-04 08:41] VITALS: BP 89/60
[2022-01-04 08:56] VITALS: BP 85/58
[2022-01-04 09:11] VITALS: BP 90/57
== END | disposition home or self-care (01) ==
LOC: SDC 12-31 10:15
PROVIDERS: ATTEND Surgery
DX: Z12.11 Encounter for screening for malignant neoplasm of colon (principal); D12.5 Benign neoplasm of sigmoid colon; K57.30 Diverticulosis of large intestine without perforation or abscess without bleeding; Z79.899 Other long term (current) drug therapy

== ENCOUNTER 2023-04-06 13:05 | Emergency (ER) | payer OTHER ==
[~2023-04-06] VITALS: Ht 185.4 cm; Wt 89.8 kg
[2023-04-06] MEDS ORDERED: TAMIFLU 75MG CA75 MG PO (13:54)
[2023-04-06] MEDS ORDERED: CITALOPRAM40 MG PO (13:54)
[2023-04-06 13:59] LABS: BASO % 0.2 % (0.0-1.0); HEMATOCRIT 41.3 % (42.0-52.0); LYMPH # 0.7 10*3/uL (1.3-4.4); LYMPH % 6.3 % (27.0-41.0); MEAN CELL VOLUME 91.4 fl (80.0-94.0); MEAN CORPUSCULAR HGB 33.2 pg (27.0-31.0); MEAN CORPUSCULAR HGB CONC 36.3 g/dl (33.0-37.0); MEAN PLATELET VOLUME 8.7 fl (9.6-12.3); MONO # 1.2 10*3/uL (0.1-1.0); MONO % 10.8 % (3.0-9.0); NEUT # 8.7 10*3/uL (2.3-7.9); NEUT % 80.8 % (47.0-73.0); PLATELET COUNT AUTOMATED 231 10*3/uL (130-400); RED BLOOD COUNT 4.52 10*6/uL (4.50-5.90); RED CELL DISTRI WIDTH 12.8 % (0-14.5); WHITE BLOOD COUNT 10.7 10*3/uL (4.8-10.8)
[2023-04-06 14:21] LABS: ALKALINE PHOSPHATASE 62 U/L (46-116); BUN 13 mg/dl (9-23); CHLORIDE 103 mmol/L (98-107); CPK 52 U/L (34-171); POTASSIUM 3.6 mmol/L (3.4-5.1); SGPT/ALT 32 U/L (10-49)
[2023-04-06 15:29] LABS: BILIRUBIN Negative (Negative); BLOOD Negative (Negative); CLARITY Clear (Clear); COLOR Yellow (Yellow); GLUCOSE Negative (Negative); KETONE 2+ (Negative); LEUKO ESTERASE Negative (Negative); NITRITE Negative (Negative); PH 6.5 (4.5-8.0); SPECIFIC GRAVITY 1.025 (1.001-1.030)
[2023-04-06 15:37] LABS: BACTERIA TRACE; RBC 0-2 rbc/hpf (0-2); WBC 0-2 wbc/hpf (0-5)
[2023-04-06] MEDS ORDERED: IBU800 M1 PO (15:55)
[2023-04-06] MEDS ORDERED: REGLAN10 M1 PO (15:55)
[2023-04-06] MEDS ORDERED: AMOX-CLAV 875-1 EACH PO (15:55)
== END 2023-04-06 16:27 | disposition home or self-care (01) ==
LOC: ED 13:05
PROVIDERS: Emergency Medicine
DX: R50.9 Fever, unspecified (principal); Z98.890 Other specified postprocedural states; F41.9 Anxiety disorder, unspecified

== ENCOUNTER → 2024-02-17 | Outpatient (CLI) | payer OTHER ==
[~2024-02-17] MED LIST changes: +AMOX-CLAV 875-1 EACH PO; +CITALOPRAM40 MG PO; +IBU800 M1 PO; +REGLAN10 M1 PO; +TAMIFLU 75MG CA75 MG PO
[2024-02-17 11:04] LABS: BASO % 0.8 % (0.0-1.0); EOS # 0.4 10*3/uL (0.0-0.4); EOS % 7.1 % (1.0-4.0); LYMPH % 38.9 % (27.0-41.0); MEAN CELL VOLUME 95.6 fl (80.0-94.0); MEAN CORPUSCULAR HGB 33.3 pg (27.0-31.0); MEAN CORPUSCULAR HGB CONC 34.9 g/dl (33.0-37.0); MEAN PLATELET VOLUME 8.4 fl (9.6-12.3); MONO # 0.7 10*3/uL (0.1-1.0); MONO % 13.8 % (3.0-9.0); NEUT % 39.2 % (47.0-73.0); PLATELET COUNT AUTOMATED 277 10*3/uL (130-400); RED CELL DISTRI WIDTH 13.3 % (0-14.5); WHITE BLOOD COUNT 5.1 10*3/uL (4.8-10.8)
[2024-02-17 11:33] LABS: ALKALINE PHOSPHATASE 64 U/L (46-116); BUN 16 mg/dl (9-23); CHLORIDE 105 mmol/L (98-107); CHOLESTEROL 195 mg/dL (<200); LDL CHOLESTEROL 101 mg/dL (9-159); SGPT/ALT 20 U/L (5-49); TOTAL PROTEIN 6.9 gm/dL (6.0-8.0); TRIGLYCERIDES 206 mg/dl (<150)
[2024-02-17 11:35] LABS: VITAMIN D, 25-HYDROXY 78.9 ng/mL (30-100)
== END ==
LOC: LAB 10:48
PROVIDERS: ATTEND Internal Medicine
DX: R53.83 Other fatigue (principal)

== ENCOUNTER → 2024-03-26 | Outpatient (CLI) | payer OTHER ==
[2024-03-26 10:01] LABS: BASO % 0.7 % (0.0-1.0); EOS # 0.4 10*3/uL (0.0-0.4); EOS % 7.1 % (1.0-4.0); HEMATOCRIT 43.1 % (42.0-52.0); LYMPH # 2.1 10*3/uL (1.3-4.4); LYMPH % 36.9 % (27.0-41.0); MEAN CELL VOLUME 93.9 fl (80.0-94.0); MEAN CORPUSCULAR HGB 32.5 pg (27.0-31.0); MEAN CORPUSCULAR HGB CONC 34.6 g/dl (33.0-37.0); MEAN PLATELET VOLUME 8.5 fl (9.6-12.3); MONO # 0.7 10*3/uL (0.1-1.0); MONO % 11.9 % (3.0-9.0); NEUT # 2.4 10*3/uL (2.3-7.9); PLATELET COUNT AUTOMATED 259 10*3/uL (130-400); RED BLOOD COUNT 4.59 10*6/uL (4.50-5.90); RED CELL DISTRI WIDTH 13.2 % (0-14.5); WHITE BLOOD COUNT 5.6 10*3/uL (4.8-10.8)
[2024-03-26 10:39] LABS: ALKALINE PHOSPHATASE 59 U/L (46-116); BUN 14 mg/dl (9-23); CHLORIDE 107 mmol/L (98-107); POTASSIUM 3.7 mmol/L (3.4-5.1); SGPT/ALT 21 U/L (5-49); TOTAL PROTEIN 6.6 gm/dL (6.0-8.0)
== END | disposition home or self-care (01) ==
LOC: LAB 09:38
PROVIDERS: ATTEND Internal Medicine
DX: R22.0 Localized swelling, mass and lump, head (principal)

== ENCOUNTER → 2024-03-27 | Outpatient (CLI) | payer OTHER ==
[~2024-03-27] MED LIST changes: +IOHEXOL 300 MG/ML 100 ML VIAL IV ONE
== END | disposition home or self-care (01) ==
LOC: CT 00:46
PROVIDERS: ATTEND Internal Medicine
DX: R22.0 Localized swelling, mass and lump, head (principal)

== ENCOUNTER → 2024-08-15 | Outpatient (CLI) | payer OTHER ==
[~2024-08-15] MED LIST changes: -IOHEXOL 300 MG/ML 100 ML VIAL IV ONE
== END | disposition home or self-care (01) ==
LOC: RAD 11:33
PROVIDERS: ATTEND Internal Medicine
DX: M25.521 Pain in right elbow (principal)

== ENCOUNTER → 2025-02-20 | Outpatient (CLI) | payer OTHER ==
[2025-02-20 12:01] LABS: BASO % 0.5 % (0.0-1.0); EOS # 0.2 10*3/uL (0.0-0.4); EOS % 3.5 % (1.0-4.0); HEMATOCRIT 41.4 % (42.0-52.0); MEAN CORPUSCULAR HGB 32.8 pg (27.0-31.0); MEAN CORPUSCULAR HGB CONC 35.3 g/dl (33.0-37.0); MEAN PLATELET VOLUME 8.6 fl (9.6-12.3); MONO # 0.6 10*3/uL (0.1-1.0); MONO % 10.7 % (3.0-9.0); NEUT % 50.7 % (47.0-73.0); PLATELET COUNT AUTOMATED 267 10*3/uL (130-400); RED BLOOD COUNT 4.45 10*6/uL (4.50-5.90); RED CELL DISTRI WIDTH 12.9 % (0-14.5)
[2025-02-20 12:29] LABS: ALKALINE PHOSPHATASE 52 U/L (46-116); BUN 19 mg/dl (9-23); CHLORIDE 107 mmol/L (98-107); SGPT/ALT 22 U/L (5-49); TOTAL PROTEIN 6.6 gm/dL (6.0-8.0)
== END | disposition home or self-care (01) ==
LOC: LAB 11:20
PROVIDERS: ATTEND Internal Medicine
DX: R42 Dizziness and giddiness (principal)

== ENCOUNTER → 2025-02-22 | Outpatient (CLI) | payer OTHER ==
[~2025-02-22] MED LIST changes: +IOHEXOL 350 MG/ML 100 ML VIAL IV ONE; +SODIUM CHLORIDE 0.9% 100 ML BAG IV ONE; +SODIUM CHLORIDE 0.9% 100 ML IV ONE
== END | disposition home or self-care (01) ==
LOC: CT 00:15
PROVIDERS: ATTEND Internal Medicine
DX: J32.0 Chronic maxillary sinusitis (principal); R42 Dizziness and giddiness

== ENCOUNTER 2025-08-21 18:59 | Emergency (ER) | payer OTHER ==
[~2025-08-21] VITALS: Ht 177.8 cm; Wt 81.6 kg
[~2025-08-21 18:59] MED LIST changes: -IOHEXOL 350 MG/ML 100 ML VIAL IV ONE; -SODIUM CHLORIDE 0.9% 100 ML BAG IV ONE; -SODIUM CHLORIDE 0.9% 100 ML IV ONE
[2025-08-21] MEDS ORDERED: SODIUM CHLORIDE 0.9% 1,000 ML IV ONE (19:20)
[2025-08-21] MEDS ORDERED: Ondansetron Hydrochloride 4 MG/2 ML VIAL IV ONE (19:20)
[2025-08-21 19:29] LABS: BASO # 0.1 10*3/uL (0.0-0.1); BASO % 0.5 % (0.0-1.0); EOS # 0.4 10*3/uL (0.0-0.4); EOS % 4.0 % (1.0-4.0); MEAN CELL VOLUME 93.9 fl (80.0-94.0); MEAN CORPUSCULAR HGB 33.1 pg (27.0-31.0); MEAN PLATELET VOLUME 8.7 fl (9.6-12.3); MONO # 0.8 10*3/uL (0.1-1.0); MONO % 8.2 % (3.0-9.0); NEUT # 6.1 10*3/uL (2.3-7.9); NEUT % 64.5 % (47.0-73.0); NUCLEATED RED BLOOD CELL 0.0 % (0.0-0.0); NUCLEATED RED BLOOD CELL 0.0 10*3/uL (0.0-0.0); PLATELET COUNT AUTOMATED 319 10*3/uL (130-400); RED CELL DISTRI WIDTH 12.7 % (0-14.5)
[2025-08-21 19:40] LABS: ACT PARTIAL THROMBO TIME 22.0 SECONDS (20.0-32.1)
[2025-08-21 19:54] LABS: BUN 19 mg/dl (9-23); CPK 78 U/L (34-171); MYOGLOBIN 18.0 ng/ml (16-116)
[2025-08-21] MEDS ORDERED: ASPIRIN 325 MG TAB PO ONE (21:00)
[2025-08-21] MEDS ORDERED: IOHEXOL 350 MG/ML 100 ML VIAL IV ONE ×2 (21:05→21:29)
[2025-08-21] MEDS ORDERED: SODIUM CHLORIDE 0.9% 100 ML BAG IV ONE (21:05)
[2025-08-21] MEDS ORDERED: SODIUM CHLORIDE 0.9% 100 ML IV ONE (21:29)
[2025-08-21] MEDS ORDERED: MECLIZINE HCL25 M2 PO (23:03)
== END 2025-08-21 23:22 | disposition home or self-care (01) ==
LOC: ED 18:59
PROVIDERS: Emergency Medicine
DX: R42 Dizziness and giddiness (principal); R11.10 Vomiting, unspecified; Z98.890 Other specified postprocedural states; Z20.822 Contact with and (suspected) exposure to COVID-19; Z79.899 Other long term (current) drug therapy

== ENCOUNTER → 2025-08-23 | Outpatient (CLI) | payer OTHER ==
[~2025-08-23] MED LIST changes: +GADOTERATE MEGLUMINE 10 MMOL/20 ML VIAL IV ONE; +MECLIZINE HCL25 M2 PO
== END | disposition home or self-care (01) ==
LOC: MRI 10:47
PROVIDERS: ATTEND Internal Medicine
DX: J34.89 Other specified disorders of nose and nasal sinuses (principal); R42 Dizziness and giddiness